=== PATIENT | female | born 1995 | race Caucasian/White ===

== ENCOUNTER 2017-01-10 00:27 | Emergency (ER) | payer BC ==
[~2017-01-10] VITALS: Ht 144.8 cm; Wt 57.4 kg
[2017-01-10 00:58] LABS: HEMATOCRIT 38.6 % (36.0-46.0); MCH 31.7 PG (29.0-34.0); MCHC 35.2 G/DL (30.0-36.0); PLATELET COUNT 275 K/uL (156-360); RBC DIS.WIDTH-CV 11.9 % (11.8-14.6); RBC DIS.WIDTH-SD 39.2 % (39-53); RED BLOOD COUNT 4.29 M/uL (3.80-5.20); WHITE BLOOD COUNT 8.3 K/uL (4.1-10.2)
[2017-01-10 01:25] LABS: TROP-I INTERPRETATION NEGATIVE; TROPONIN-I < 0.01 ng/mL (0.0-0.30)
[2017-01-10 01:39] LABS: D-DIMER ELISA 0.36 mg/L FEU (< 0.57)
[2017-01-10 01:51] LABS: CHLORIDE 105 mEq/L (99-109); POTASSIUM 3.7 mEq/L (3.7-5.4); SODIUM 136 mEq/L (136-147)
[2017-01-10 01:53] LABS: GLUCOSE 85 mg/dL (70-99)
[2017-01-10 01:54] LABS: ANION GAP 9 MEQ/L (2-14)
[2017-01-10 01:56] LABS: GFR ESTIMATE (CALCULATED) > 59 mL/min/
[2017-01-10 01:57] LABS: UREA NITROGEN (BUN) 13 mg/dL (9-23)
[2017-01-10] MEDS ORDERED: NAPROSYN500 MG PO (03:08)
[2017-01-10] MEDS ORDERED: NORCO 5/3251 TABLET PO (03:08)
[2017-01-10 03:20] VITALS: BP 115/86
== END 2017-01-10 03:21 | disposition home or self-care (01) ==
LOC: EME 00:27
PROVIDERS: Physician Assistant
DX: R07.89 Other chest pain (principal); M94.0 Chondrocostal junction syndrome [Tietze]
CPT/HCPCS: 71020; 80048; 84484; 85027; 85379; 93005; 99281; 99284